=== PATIENT | male | born 1965 | race Caucasian/White ===

== ENCOUNTER 2017-11-19 17:09 | Emergency (ER) | payer SELFPAY ==
[2017-11-19 17:40] VITALS: TEMP 98.1
[2017-11-19] MEDS ORDERED: MORPHINE SULFATE INJ 10 MG/ML VIAL IM ONE (17:57)
[2017-11-19] MEDS ORDERED: ONDANSETRON ODT 8 MG TAB SL ONE (17:57)
--- NOTE | 2017-11-19 18:00 | ED.PDOC ---
History of Present Illness - General Chief Complaint: Abdominal Pain Stated Complaint: Lower abdominal discomfort Time Seen by Provider: 11/19/17 17:45 Information Source: patient, RN notes reviewed, Vital Signs reviewed, family Exam Limitations: no limitations - History of Present Illness Initial Comments: abdominal pain Abdominal Pain Onset Location: RLQ, LLQ, suprapubic Pain Radiation: no radiation Quality: moderate, sharpness, vague, waxing/waning Timing/Duration: days - 2 Improving Factors: nothing Worsening Factors: nothing Associated Symptoms: diarrhea, nausea/vomiting, other - chronic problem with episodes over the past 5 years & numerous work ups at other EDs. He was told it was pain due to a previous hernia repair. Review of Systems - Review of Systems Constitutional: States: no symptoms reported EENTM: States: no symptoms reported Respiratory: States: no symptoms reported Cardiology: States: no symptoms reported Gastrointestinal/Abdominal: States: see HPI, other - he states this episode is identical to his previous episodes. He is here he says to get something for pain & nausea. He declines any testing. His last ED visit was reportedly about a month ago at another facility. Genitourinary: States: no symptoms reported, other - scrotal swelling - not new Musculoskeletal: States: no symptoms reported Neurological: States: no symptoms reported Past Medical History (General) - Patient Medical History Hx Stroke: No Hx Asthma: No Hx of COPD: No Hx Cardiac Disorders: No Hx Congestive Heart Failure: No Hx Diabetes: No Hx Gastroesophageal Reflux: - Hx of partial bowel obstruction Surgical History: other - herniorraphy - Vaccination History Hx Tetanus, Diphtheria Vaccination: Yes Hx Influenza Vaccination: No Hx Pneumococcal Vaccination: No - Social History Hx Tobacco Use: Yes - Activities of Daily Living Patient Lives Alone: No Family Medical History - Family History Father Family History: Unknown Living Status: Still Living Physical Exam - Physical Exam General Appearance: Alert, Comfortable, No apparent distress Neck: supple, normal inspection Respiratory: no respiratory distress Cardiovascular/Chest: no JVD Gastrointestinal/Abdominal: soft, guarding, tenderness - diffusely to the lower quadrants. No peritoneal signs or distention. Extremity: normal range of motion Neurologic: alert, normal mood/affect, oriented x 3 Skin Exam: normal color, warm/dry Special Observations: No evidence of discomfort, Smiling Progress - Progress Progress: 11/19/17 18:52 I have advised him that he will need to obtain a PCP as he is new to the area & that the ED would not be able to manage his chronic pain with continued opiates. Departure - Departure Clinical Impression: Chronic abdominal pain Abdominal pain Qualifiers: Abdominal location: lower abdomen, unspecified Qualified Code(s): R10.30 - Lower abdominal pain, unspecified Time of Disposition: 17:59 Disposition: Discharge to Home or Self Care Condition: Good Departure Forms: ED Discharge - Pt. Copy, Patient Portal Self Enrollment Instructions: DI for Abdominal Pain-Adult, Chronic Pain (DC) Diet: resume usual diet Referrals: Joo Amanda MD [Active Staff] - 11/21/17 Prescriptions: Acetamin W/Cod #3 Tab [Tylenol w/CODEINE #3] 2 ea PO Q8HRS PRN 3 Days #12 tab PRN Reason: Moderate To Severe Pain Ondansetron [Zofran Odt] 4 mg PO Q4H PRN #10 tab PRN Reason: Vomiting Home Medications: Ambulatory Orders Acetamin W/Cod #3 Tab [Tylenol w/CODEINE #3] 2 ea PO Q8HRS PRN 3 Days #12 tab Ondansetron [Zofran Odt] 4 mg PO Q4H PRN #10 tab 11/19/17
[2017-11-19 18:45] VITALS: BP 117/75; O2SAT 99
== END 2017-11-19 18:25 | disposition home or self-care (01) ==
LOC: ER 17:09
DX: R10.30 Lower abdominal pain, unspecified (principal); Z87.891 Personal history of nicotine dependence; Z79.899 Other long term (current) drug therapy

== ENCOUNTER 2017-12-15 19:45 | Emergency (ER) | payer SELFPAY ==
[2017-12-15] MEDS ORDERED: HYDROcodone 7.5MG/APAP 325MG 1 EA TAB PO ONE (20:22)
[2017-12-15 20:23] VITALS: TEMP 98.5
--- NOTE | 2017-12-15 20:26 | ED.PDOC ---
History of Present Illness - General Chief Complaint: Abdominal Pain Stated Complaint: low inguinal pain Time Seen by Provider: 12/15/17 20:12 Information Source: patient Exam Limitations: no limitations - History of Present Illness Initial Comments: patient comes in today for pain in the right inguinal area that radiates to his testicle. Patient had hernia repair years ago with mesh eighth had problems over the past several months. Patient states he's been able to see a surgeon thus far because he has no insurance. He had arranged through [facility] to get some help but this is been slow in coming. Patient states that 2 weeks ago he was seen at different ER and found to have a partial small bowel obstruction. At that time the symptoms resolved on their own and he was released. Patient states he is taking ibuprofen [id number] is not helping his pain. His last bout of emesis was 2 weeks ago and he has been able to have normal bowel movements in the last week. Patient states the pain is not as severe as it was 2 weeks ago. Additionally, patient was concerned that 2 weeks ago his legs were having changes in color and some swelling but that also has resolved. He has no fever, chills, nausea or vomiting today. Abdominal Pain Onset Location: other - groin pain in the r inguinal with radiation to the testicle Pain Radiation: other Quality: severe, sharpness, waxing/waning Timing/Duration: constant Improving Factors: medication Worsening Factors: movement Associated Symptoms: denies symptoms Review of Systems - Review of Systems Constitutional: States: no symptoms reported. Denies: chills, fever, weakness EENTM: States: no symptoms reported Respiratory: States: no symptoms reported Cardiology: States: no symptoms reported Gastrointestinal/Abdominal: States: see HPI. Denies: constipation, diarrhea, nausea, vomiting Genitourinary: Denies: dysuria, frequency, hematuria Musculoskeletal: States: no symptoms reported Skin: States: no symptoms reported Neurological: States: no symptoms reported Past Medical History (General) - Patient Medical History Hx Stroke: No Hx Asthma: No Hx of COPD: No Hx Cardiac Disorders: No Hx Congestive Heart Failure: No Hx Diabetes: No Hx Gastroesophageal Reflux: - Hx of partial bowel obstruction - Vaccination History Hx Tetanus, Diphtheria Vaccination: Yes Hx Influenza Vaccination: No Hx Pneumococcal Vaccination: No - Social History Hx Tobacco Use: Yes Family Medical History - Family History Father Family History: Unknown Living Status: Still Living Physical Exam - Physical Exam General Appearance: Alert Eyes, Ears, Nose, Throat Exam: PERRL/EOMI, normal ENT inspection, TMs normal, pharynx normal Neck: non-tender, full range of motion, supple, normal inspection Respiratory: chest non-tender, lungs clear, normal breath sounds, no respiratory distress Cardiovascular/Chest: normal peripheral pulses, regular rate, rhythm, no edema, no gallop, no JVD, no murmur Gastrointestinal/Abdominal: normal bowel sounds, soft Male Genitalia: inguinal tenderness - R inguinal tenderness with hernia able to be reduced with swelling in the testicle, testicular tenderness Progress - Progress Progress: 12/15/17 20:34 TPMP search shows only one prescription for 12 Tylenol # [address] Covarrubias 12/15/17 20:45 Patient Name: COLE MANLEY Gender: Male Date of : 1965 Referring Physician: NADIA ROJAS Organization: [facility] Accession Number: [id number] Requested Date: December 15, 2017 20:18 Report Status: Final Requested Procedure: 1 Procedure Description: Abdomen Flat Upright Modality: CR Findings Reporting MD: Jules Bee Fellow MD: Not available Dictation Time: Maritime Pilot: Not available Director Of Content Marketing Date: EXAM DESCRIPTION: Abdomen Flat Upright CLINICAL HISTORY: 52 years Male, pain with R inquinal hernia COMPARISON: None. FINDINGS: Lung bases are clear. Bowel gas pattern appears nonobstructive. No free intraperitoneal air. No abnormal calcifications. Osseous structures are unremarkable. IMPRESSION: No acute findings. patient this time has no signs of acute obstruction. Patient does state that he is better now than he was 2 weeks ago. He has had multiple workups in other ERs and has been seen here as well. He comes today in hopes of getting help with pain control while he awaits [facility] appointment with surgeon. We've explained for immediate care from a surgeon something emergent would necessitate transfer and he is by his own report better than he was 2 weeks ago. We've asked him to follow up with his PCP in the morning for pain control but we've given him something for tonight. Patient should return to the emergency room for nausea, increasing abdominal pain, failure to pass gas or have bowel movements. 12/15/17 20:46 Departure - Departure Clinical Impression: Inguinal hernia Qualifiers: Obstruction and gangrene presence: without obstruction or gangrene Laterality: unilateral Recurrence: recurrent Qualified Code(s): K40.91 - Unilateral inguinal hernia, without obstruction or gangrene, recurrent Disposition: Discharge to Home or Self Care Condition: Fair Departure Forms: ED Discharge - Pt. Copy, Patient Portal Self Enrollment Instructions: DI for Abdominal Pain-Adult Diet: regular diet Activity: no exercise, other - no lifting >10 lbs Home Medications: Ambulatory Orders Acetamin W/Cod #3 Tab [Tylenol w/CODEINE #3] 2 ea PO Q8HRS PRN 3 Days #12 tab Ondansetron [Zofran Odt] 4 mg PO Q4H PRN #10 tab 11/19/17 Additional Instructions: follow up with his PCP in the morning for pain control but we've given him something for tonight. Patient should return to the emergency room for nausea, increasing abdominal pain, failure to pass gas or have bowel movements.
--- NOTE | 2017-12-15 20:43 | RAD ---
EXAM DESCRIPTION: Abdomen Flat Upright CLINICAL HISTORY: 52 years Male, pain with R inquinal hernia COMPARISON: None. FINDINGS: Lung bases are clear. Bowel gas pattern appears nonobstructive. No free intraperitoneal air. No abnormal calcifications. Osseous structures are unremarkable. IMPRESSION: No acute findings. Electronically signed by: Jules Bee MD 12/15/2017 8:42 PM CDT
[2017-12-15 20:59] VITALS: BP 128/72; O2SAT 97
== END 2017-12-15 20:55 | disposition home or self-care (01) ==
LOC: ER 19:45
DX: K40.91 Unilateral inguinal hernia, without obstruction or gangrene, recurrent (principal); Z87.19 Personal history of other diseases of the digestive system

== ENCOUNTER 2018-07-17 16:11 | Emergency (ER) | payer SELFPAY ==
[2018-07-17 16:23] VITALS: BP 127/78; TEMP 97.3; O2SAT 99
--- NOTE | 2018-07-17 16:34 | ED.PDOC ---
History of Present Illness - General Chief Complaint: Skin/Abrasion/Tear Stated Complaint: generalized rash Time Seen by Provider: 07/17/18 16:16 Source: patient Exam Limitations: no limitations - History of Present Illness Initial Comments: [place] Jr. 52 y/o malecame to ER with pruritic skin rash both upper extremities and torso for the last 3 weeks.No fever,no new detergents,or bath soap.Stated it came out first on his right axilla then gradually spread. Timing/Duration: other - 3 weeks Severity: moderate Location: torso, extremities Improving Factors: nothing Worsening Factors: nothing Associated Symptoms: other - see hpi Allergies/Adverse Reactions: Allergies Tramadol Allergy (Verified 11/19/17 17:49) Home Medications: Ambulatory Orders Cephalexin 500 mg PO TID 10 Days #30 cap 07/17/18 Prednisone 10 mg PO BID 7 Days #14 tab 07/17/18 Review of Systems - Review of Systems Constitutional: States: no symptoms reported EENTM: States: no symptoms reported Respiratory: States: no symptoms reported Skin: States: see HPI All other Systems: Reviewed and Negative, No Change from Baseline Past Medical History (General) - Patient Medical History Hx Seizures: No Hx Stroke: No Hx Asthma: No Hx of COPD: No Hx Cardiac Disorders: No Hx Congestive Heart Failure: No Hx Diabetes: No Hx Gastroesophageal Reflux: - Hx of partial bowel obstruction Surgical History: other - hernia repair - Vaccination History Hx Tetanus, Diphtheria Vaccination: Yes Hx Influenza Vaccination: No Hx Pneumococcal Vaccination: No - Social History Hx Tobacco Use: Yes Hx Alcohol Use: No Family Medical History - Family History Father Family History: Unknown Living Status: Still Living Hx Family Congestive Heart Failure: Yes Hx Family Hypertension: Yes Hx Family Diabetes: Yes Physical Exam - Physical Exam General Appearance: Alert, Comfortable, No apparent distress Eyes, Ears, Nose, Throat Exam: normal ENT inspection, pharynx normal Neck: non-tender, full range of motion, supple Cardiovascular/Chest: normal peripheral pulses, regular rate, rhythm, no murmur Respiratory: lungs clear, normal breath sounds Gastrointestinal/Abdominal: non tender, soft, no organomegaly Back Exam: normal inspection, no CVA tenderness Extremity: no pedal edema, no calf tenderness Neurologic: alert Skin Exam: warm/dry, normal color Skin Problem Location: upper extremities, torso Skin Character: macules, papules Lymphatic: no adenopathy Progress - Progress Progress: 07/17/18 16:36 Vital Signs - 8 hr 07/17/18 16:19 Temperature 97.3 F L Pulse Rate [ 84 left brachial] Respiratory 18 Rate Blood Pressure 127/78 [left brachial] O2 Sat by Pulse 99 Oximetry Departure - Departure Clinical Impression: Pruritic rash Time of Disposition: 16:37 Disposition: Discharge to Home or Self Care Condition: Fair Departure Forms: ED Discharge - Pt. Copy, Patient Portal Self Enrollment Instructions: Skin Rash (DC), Skin Rash Prescriptions: Cephalexin 500 mg PO TID 10 Days #30 cap Prednisone 10 mg PO BID 7 Days #14 tab Home Medications: Ambulatory Orders Cephalexin 500 mg PO TID 10 Days #30 cap 07/17/18 Prednisone 10 mg PO BID 7 Days #14 tab 07/17/18 Additional Instructions: For itching may take over the counter Benadryl-25 mg 1-2 capsule 3 x a day for itching;Need to sign up with primary Md for referral to [facility]or(loss prevention specialist)
== END 2018-07-17 16:55 | disposition home or self-care (01) ==
LOC: ER 16:11
DX: R21 Rash and other nonspecific skin eruption (principal); Z88.8 Allergy status to other drugs, medicaments and biological substances; Z87.891 Personal history of nicotine dependence

== ENCOUNTER → 2019-11-12 | Outpatient (CLI) | payer SELFPAY ==
--- NOTE | 2019-11-12 10:51 | CT ---
EXAM DESCRIPTION: CT ABDOMEN AND PELVIS WITH CONTRAST CLINICAL HISTORY: RIGHT INGUINAL PAIN COMPARISON: None Available. TECHNIQUE: CT of the abdomen and pelvis are performed during IV bolus administration of nonionic contrast. Oral contrast media is administered as well. This exam was performed according to our departmental dose-optimization program, which includes automated exposure control, adjustment of the mA and/or kV according to patient size and/or use of iterative reconstruction technique. FINDINGS: Lung bases are clear without infiltrate or effusion or mass. No free abdominal air seen. The liver normally enhances with small subcentimeter cysts noted. The spleen and normally enhances. No solid lesions noted. Gallbladder and biliary ductal system are normal. Small normal adrenal glands and normal appearance of the enhanced pancreas noted. An air-filled second portion duodenal diverticulum, small, layering contrast in the second portion duodenum also noted. The kidneys normally enhance with no specific abnormality on the left noted. Two small benign cyst upper and mid pole evident on the right without stone disease or hydronephrosis or solid mass. Aorta and vena cava and retroperitoneum and root of the mesentery is unremarkable. Small and large bowel caliber is normal without obstruction. Contrast extends to the level of the rectum. Mild diverticulosis of the left colon is present. The cecum and ileocecal valve and appendix are normal. No right lower quadrant or left lower quadrant inflammatory changes or fluid collections noted. No abdominal or pelvic ascites evident. Within the pelvis incompletely distended bladder and normal-appearing seminal vesicles and prostate noted. No cul-de-sac fluid or iliac or inguinal or pelvic sidewall adenopathy seen. Right and left inguinal regions are unremarkable. Anterior abdominal wall is normal. Mild scoliosis of the thoracolumbar spine convex to the left in the lower lumbar region with [id number] advanced degenerative disc narrowing and vacuum phenomena at L5-S1 and modest endplate degenerative changes at L4-5 anteriorly on the right involving the inferior L4 endplate. Bony pelvis and hips are grossly unremarkable. IMPRESSION: 1. Normal appearance of the upper abdomen with a small air-filled second portion duodenal diverticulum and small benign cyst right kidney. 2. Mild left colonic diverticulosis without diverticulitis. A specific abnormality in the right lower quadrant is not apparent with normal-appearing appendix cecum and ileocecal valve region and right inguinal region. 3. Mild scoliosis and moderate lower lumbar degenerative disc disease particularly at L5-S1. Electronically signed by: Lukas Harris MD 11/12/2019 10:50 AM CDT
== END ==
LOC: CT 08:00
PROVIDERS: ATTEND Family Medicine
DX: K57.30 Diverticulosis of large intestine without perforation or abscess without bleeding (principal); N28.1 Cyst of kidney, acquired; M41.9 Scoliosis, unspecified; M51.37 Other intervertebral disc degeneration, lumbosacral region